=== PATIENT | female | born 1980 | race African-American/Black ===

== ENCOUNTER 2024-04-23 08:47 | Emergency (ER) | payer OTHER ==
[2024-04-23 08:53] VITALS: BP 111/72; PULSE 79; RESP 18; TEMP 98; BMI 33.3
[2024-04-23] MEDS ORDERED: LIDOCAINE 4% PATCH TP ONE (09:36)
[2024-04-23] MEDS ORDERED: KETOROLAC TROMETHAMINE 30 MG/1 ML VIAL ONE (09:36)
[2024-04-23] MEDS: LIDOCAINE 4% PATCH TP ONE (09:43)
[2024-04-23] MEDS: KETOROLAC TROMETHAMINE 30 MG/1 ML VIAL IM ONE (09:43)
[2024-04-23] MEDS ORDERED: AZITHROMYCIN 500 MG TABLET ONE (11:01)
[2024-04-23] MEDS ORDERED: AMOXICILLIN 500 MG CAPSULE (FP) ONE (11:01)
[2024-04-23] MEDS: AMOXICILLIN 500 MG CAPSULE (FP) PO ONE (11:07)
[2024-04-23] MEDS: AZITHROMYCIN 250 MG TABLET PO ONE (11:07)
[2024-04-23] MEDS: AMOX TR/POT CLAV 875MG/125MG TABLETS (FP) PO ONE (11:08)
[2024-04-23] MEDS ORDERED: LIDOCAINE PATCH REMOVAL MC SCH (22:00)
== END 2024-04-23 11:18 | disposition home or self-care (01) ==
LOC: JER 08:47
PROC: 3E0133Z Introduction of Anti-inflammatory into Subcutaneous Tissue, Percutaneous Approach (ICD-10-PCS; principal; 2024-04-23)
DX: J18.9 Pneumonia, unspecified organism (principal); R06.02 Shortness of breath; M54.6 Pain in thoracic spine
CPT/HCPCS: 71046-TC-FY; 93005; 93010; 99284-25

== ENCOUNTER 2024-04-29 06:51 | Observation (INO) | payer OTHER ==
[2024-04-29 08:37] LABS: VENOUS BASE EXCESS 0.6 mmol/L (-2-2); VENOUS O2 SATURATION 39.1 % (70-80); VENOUS PCO2 49.6 mmHg (38-52); VENOUS PH 7.351 (7.310-7.410)
[2024-04-29 08:41] LABS: INR 1.13 (0.83-1.09); PROTHROMBIN TIME (PATIENT) 12.7 SEC (9.7-13.0)
[2024-04-29 08:43] LABS: BASO % 0.6 % (0-2.0); EOS % 1.9 % (0-4.5); HEMATOCRIT 35.4 % (32.4-45.2); HEMOGLOBIN 11.8 GM/dL (10.7-15.3); LYMPH % 19.4 % (8-40); MCH 32.7 pg (25.7-33.7); MCHC 33.5 g/dl (32.0-36.0); MEAN CELL VOLUME 97.7 fl (80-96); MEAN PLT VOLUME 8.8 fl (7.5-11.1); MONO % 7.9 % (3.8-10.2); NEUT % 70.2 % (42.8-82.8); PLATELET COUNT 272 10^3/uL (134-434); RBC 3.62 M/mm3 (3.60-5.2); RDW 12.9 % (11.6-15.6); WHITE BLOOD COUNT 10.6 K/mm3 (4.0-10.0)
[2024-04-29 08:44] LABS: ACTIVATED PTT 30.5 SECONDS (25.2-36.5)
[2024-04-29 08:56] LABS: POTASSIUM 4.5 mmol/L (3.5-5.1)
[2024-04-29 08:57] LABS: CALCIUM 8.6 mg/dL (8.5-10.1)
[2024-04-29] MEDS ORDERED: ACETAMINOPHEN INJECTION 100 ML IVPB ONE (08:57)
[2024-04-29] MEDS ORDERED: AZITHROMYCIN IVPB 500 MG/250 ML BAG IVPB ONE (08:57)
[2024-04-29] MEDS ORDERED: CEFTRIAXONE 1 GM/50 ML BAG ONE (08:57)
[2024-04-29 08:58] LABS: ALBUMIN 3.4 g/dl (3.4-5.0); BLOOD UREA NITROGEN 9.6 mg/dL (7-18)
[2024-04-29 09:02] LABS: BILIRUBIN,TOTAL 0.6 mg/dL (0.2-1); CREATININE 0.8 mg/dL (0.55-1.3); TOT PROT 7.2 g/dl (6.4-8.2)
[2024-04-29] MEDS: ACETAMINOPHEN 1000 MG/100 ML BAG IVPB ONE (09:05)
[2024-04-29] MEDS: CEFTRIAXONE 1 GM in DEXTROSE 5%-WATER - 100 ML IVPB ONE (09:05)
[2024-04-29] MEDS: SODIUM CHLORIDE 0.9% 1000 ML INFUS.BAG IV STA (09:05)
[2024-04-29 09:26] LABS: EPI CELLS 29 /uL (0-25.1); HYALINE CASTS 2 /uL (0-3.1); PH,URINE 6.5 (5.0-8.0); URINE APPEARANCE CLOUDY; URINE BACTERIA 159 /uL (0-1359); URINE BILIRUBIN NEGATIVE (NEGATIVE); URINE COLOR YELLOW; URINE GLUCOSE (UA) NEGATIVE (NEGATIVE); URINE KETONE NEGATIVE (NEGATIVE); URINE LEUK ESTERASE 2+ (NEGATIVE); URINE NITRITE NEGATIVE (NEGATIVE); URINE PROTEIN NEGATIVE (NEGATIVE); URINE RBC 155 /uL (0-23.9); URINE WBC 320 /uL (0-25.8)
[2024-04-29 09:42] LABS: N-TERMINAL BNP 32.8 pg/ml (5-125)
[2024-04-29] MEDS: AZITHROMYCIN IVPB 500 MG in DEXTROSE 5%-WATER - 250 ML IVPB ONE (10:02)
[2024-04-29] MEDS ORDERED: ALBUTEROL SO4 2.5/IPRATROPIUM 0.5 INH SOL 3 ML VIAL.NEB. NEB PRN (17:10)
[2024-04-29 20:07] VITALS: BMI 32.3
[2024-04-29] MEDS ORDERED: ACETAMINOPHEN 325 MG TABLET (FP) PO PRN ×2 (23:01→23:02)
[2024-04-30] MEDS: ENOXAPARIN NA (PORCINE) 40 MG/0.4 ML DISP.SYRIN SQ SCH (10:11)
[2024-04-30 10:14] LABS: BASO % 0.5 % (0-2.0); HEMATOCRIT 34.9 % (32.4-45.2); HEMOGLOBIN 11.6 GM/dL (10.7-15.3); LYMPH % 24.4 % (8-40); MCH 32.4 pg (25.7-33.7); MCHC 33.3 g/dl (32.0-36.0); MEAN CELL VOLUME 97.1 fl (80-96); MEAN PLT VOLUME 8.6 fl (7.5-11.1); MONO % 7.3 % (3.8-10.2); NEUT % 65.8 % (42.8-82.8); PLATELET COUNT 282 10^3/uL (134-434); RBC 3.59 M/mm3 (3.60-5.2); RDW 12.8 % (11.6-15.6); WHITE BLOOD COUNT 8.4 K/mm3 (4.0-10.0)
[2024-04-30 10:19] LABS: POTASSIUM 4.4 mmol/L (3.5-5.1)
[2024-04-30 10:27] LABS: CALCIUM 8.7 mg/dL (8.5-10.1)
[2024-04-30 10:28] LABS: ALBUMIN 3.3 g/dl (3.4-5.0); MAGNESIUM 2.5 mg/dL (1.8-2.4)
[2024-04-30 10:32] LABS: BILIRUBIN,TOTAL 0.5 mg/dL (0.2-1); BLOOD UREA NITROGEN 8.7 mg/dL (7-18); CREATININE 0.7 mg/dL (0.55-1.3)
[2024-04-30 10:33] LABS: TOT PROT 6.7 g/dl (6.4-8.2)
[2024-04-30] MEDS: CEFAZOLIN 1 GM in DEXTROSE 5%-WATER - 50 ML IVPB SCH (13:53)
[2024-04-30] MEDS ORDERED: IBUPROFEN 600 MG TABLET (FP) PO PRN (16:04)
[2024-04-30] MEDS: CYCLOBENZAPRINE HCL 5 MG TABLET PO SCH (16:22)
[2024-04-30] MEDS: LIDOCAINE 4% PATCH TP SCH (16:22)
[2024-04-30] MEDS ORDERED: CYCLOBENZAPRINE HCL 5 MG TABLET PO PRN (16:54)
[2024-04-30] MEDS: LIDOCAINE PATCH REMOVAL MC SCH (21:04)
[2024-05-01 08:56] LABS: HEMATOCRIT 36.8 % (32.4-45.2); HEMOGLOBIN 12.3 GM/dL (10.7-15.3); MCH 32.6 pg (25.7-33.7); MCHC 33.6 g/dl (32.0-36.0); MEAN PLT VOLUME 8.5 fl (7.5-11.1); PLATELET COUNT 300 10^3/uL (134-434); RBC 3.79 M/mm3 (3.60-5.2); RDW 12.8 % (11.6-15.6); WHITE BLOOD COUNT 6.3 K/mm3 (4.0-10.0)
[2024-05-01 09:15] LABS: POTASSIUM 4.6 mmol/L (3.5-5.1)
[2024-05-01 09:22] LABS: CALCIUM 8.8 mg/dL (8.5-10.1)
[2024-05-01 09:24] LABS: ALBUMIN 3.6 g/dl (3.4-5.0); BLOOD UREA NITROGEN 11.8 mg/dL (7-18)
[2024-05-01 09:26] LABS: CREATININE 0.8 mg/dL (0.55-1.3)
[2024-05-01 09:27] LABS: TOT PROT 7.5 g/dl (6.4-8.2)
[2024-05-01 09:29] LABS: BILIRUBIN,TOTAL 0.6 mg/dL (0.2-1)
[2024-05-01 11:46] LABS: MAGNESIUM 2.3 mg/dL (1.8-2.4)
[2024-05-01 11:50] LABS: PHOSPHOROUS 3.7 mg/dL (2.5-4.9)
[2024-05-01 14:41] VITALS: TEMP 98.8
[2024-05-01 18:25] VITALS: BP 118/81; PULSE 80; RESP 16
== END 2024-05-01 18:37 | disposition home or self-care (01) ==
LOC: JER 06:51 → UNDOADMOB 09:32 → JERBED 09:32 → INTOOBSV 09:32 → J6S 11:18 → JERBED 11:18 → J6S 18:59 → JERBED 18:59
PROVIDERS: ADMIT Internal Medicine; ATTEND Internal Medicine
PROC: 3E03329 Introduction of Other Anti-infective into Peripheral Vein, Percutaneous Approach (ICD-10-PCS; principal; 2024-04-29)
PROC: 3E023GC Introduction of Other Therapeutic Substance into Muscle, Percutaneous Approach (ICD-10-PCS; 2024-04-29)
PROC: 3E0337Z Introduction of Electrolytic and Water Balance Substance into Peripheral Vein, Percutaneous Approach (ICD-10-PCS; 2024-04-29)
DX: J18.9 Pneumonia, unspecified organism (principal); A41.9 Sepsis, unspecified organism; R07.89 Other chest pain; F17.200 Nicotine dependence, unspecified, uncomplicated
CPT/HCPCS: 0241U-QW; 36415; 71045-TC-FY; 71046-TC-FY; 71275-TC; 80053; 81003; 82803; 83605; 83735; 83880; 84100; 84484; 84703; 85025; 85027; 85610; 85730; 86850; 86900; 86901; 87040; 87081; 87086; 87536; 87899; 93005; 93010; 96365; 96367; 96372; 96375; 99285-25; G0378; J0131